=== PATIENT | female | born 1990 | race Two or more races ===

== ENCOUNTER 2024-07-29 00:02 | Emergency (ER) | payer OTHER ==
[~2024-07-29] VITALS: Ht 149.9 cm; Wt 57.8 kg
--- NOTE | 2024-07-29 00:48 | ED.PDOC ---
COMMERCIAL MANAGER HPI Comments 34-year-old female who came to ER for pelvic pain. Patient is a , about 19 weeks . States for the past 2 days she has been having lower abdominal cramping pain, right lower quadrant to suprapubic area. Does have history of uterine fibroids. Denies any nausea or vomiting or any urinary symptoms. Denies any vaginal bleeding or discharge Chief Complaint: Pelvic Pain Time Seen by MD: 00:47 Reviewed Notes: Nurses Notes Allergies: Coded Allergies: No Known Drug Allergy (Verified Allergy, Unknown, 07/29/24) Information Source: Patient Mode of Arrival: Ambulatory Timing: Days Prehospital treatment: None Severity: Moderate Vaginal Discharge: None Vaginal Lesions: None Sexual Activity: History of: Current Associated Signs and Symptoms: Abdominal Pain Past Medical History PAST MEDICAL HISTORY: Denies Past Medical History (Other): Patient states she is currently 19 weeks . Surgical History: Denies all surgeries MANUFACTURING MAINTENANCE MECHANIC History: Uterine Fibroids Family History Family History: Reviewed,noncontributory to illness Social History Smoker: Non-Smoker Alcohol: Denies ETOH Use Drugs: Denies Drug Use Lives In: Home Constitutional: denies: chills, diaphoresis, fatigue, fever, malaise, sweats, weakness, others EENTM: denies: blurred vision, double vision, ear bleeding, ear discharge, ear drainage, ear pain, ear ringing, eye pain, eye redness, hearing loss, mouth pain, mouth swelling, nasal discharge, nose bleeding, nose congestion, nose pain, photophobia, tearing, throat pain, throat swelling, voice changes, others Respiratory: denies: cough, hemoptysis, orthopnea, SOB at rest, shortness of breath, SOB with excertion, stridor, wheezing, others Cardiovascular: denies: chest pain, dizzy spells, diaphoresis, Dyspnea on exertion, edema, irregular heart beat, left arm pain, lightheadedness, palpitations, PND, syncope, others Gastrointestinal: reports: abdominal pain; denies: abdomen distended, blood streaked bowels, constipated, diarrhea, dysphagia, difficulty swallowing, hematemesis, melena, nausea, poor appetite, poor fluid intake, rectal bleeding, rectal pain, vomiting, others Genitourinary: denies: abnormal vagina bleeding, burning, dyspareunia, dysuria, flank pain, frequency, hematuria, incontinence, pain, , vagina discharge, urgency, others Neurological: denies: dizziness, fainting, headache, left sided numbness, left sided weakness, numbness, paresthesia, pre-existing deficit, right sided numbness, right sided weakness, seizure, speech problems, tingling, tremors, weakness, others Musculoskeletal: denies: back pain, gout, joint pain, joint swelling, muscle pain, muscle stiffness, neck pain, others Integumetry: denies: bruises, change in color, change in hair/nails, dryness, laceration, lesions, lumps, rash, wounds, others Allergic/Immunocompromised: denies: Difficulty Healing, Frequent Infections, Hives, Itching, others Hematologic/Lymphatic: denies: anemia, blood clots, easy bleeding, easy b ruising, swollen glands, others Endocrine: denies: excessive hunger, excessive sweating, excessive thirst, excessive urination, flushing, intolerance to cold, intolerance to heat, unexplained weight gain, unexplained weight loss, others Psychiatric: denies: anxiety, bipolar disorder, depression, hopeless, panic disorder, schizophrenia, sleepless, suicidal, others Physical Exam General Appearance: Moderate Distress (Multiple distress due to bilateral abdominal/pelvic pain.), Normal HEENT: Normal ENT Inspection, Pharynx Normal, TMs Normal Neck: Full Range of Motion, Non-Tender, Normal, Normal Inspection Respiratory: Chest Non-Tender, Lungs Clear, No Accessory Muscle Use, No Respiratory Distress, Normal Breath Sounds Cardiovascular: No Edema, No JVD, No Murmur, No Gallop, Normal Peripheral Pulses, Regular Rate/Rhythm Breast Exam: Deferred Gastrointestinal: No Pulsatile Mass, Normal Bowel Sounds, Soft, Other (Diffuse bilateral lower abdominal/pelvic tenderness to palpation. appreciated. No signs of trauma.) Genitalia: Deferred Pelvic: Deferred Rectal: Deferred Extremities: No calf tenderness, Normal capillary refill, Normal inspection, Normal range of motion, Non-tender, No pedal edema Musculoskeletal : Apperance: Normal Neurologic: Alert, No Motor Deficits, Normal Affect, Normal Mood, No Sensory Deficits Cerebellar Function: Normal Reflexes: Normal Skin: Dry, Normal Color, Warm Lymphatic: No Adenopathy Was a procedure done? Was a procedure done?: No Differential Diagnosis (MANUFACTURING MAINTENANCE MECHANIC) Vaginal Bleeding: - Threatened, Myomatous Uterus, UTI, Vaginitis, Other (Pain of ) X-Ray, Labs, Meds, VS Vital Signs Date Time Temp Pulse Resp B/P (MAP) Pulse Ox O2 Delivery O2 Flow Rate FiO2 07/29/24 00:02 99.0 98 18 106/64 (78) 99 Lab Test 07/29/24 00:12 Range/Units Urine Color Light-yellow Yellow Urine Clarity Clear Clear Urine pH 6.0 5.0-9.0 Urine Specific [place] 1.015 1.001-1.035 Urine Protein Negative Negative Urine Ketones 2+ H Negative Urine Blood Trace H Negative /uL Urine Nitrite Negative Negative Urine Bilirubin Negative Negative Urine Urobilinogen Normal Negative mg/dL Urine Leukocyte Esterase Negative Negative /uL Urine RBC 1 0 - 4 /hpf Urine WBC 3 0 - 5 /hpf Urine Squamous Epithelial Cells Few <5 /hpf Urine Bacteria None seen None Seen /hpf Urine Glucose Normal Normal mg/dL X-Ray, Labs, Meds, VS Comment All studies performed the ED today were evaluated by me personally. Laboratories were unremarkable for any acute systemic process. OB ultrasound confirmed a viable 19 week . Uterine fibroid was noted. Patient appears to be suffering from pain or as well as uterine fibroid concerns. Time of 1ST Reevaluation: 02:13 Reevaluation 1ST: Unchanged Consultation: PCP, check totaler Patient Education/Counseling: Diagnosis, Treatment Family Education/Counseling: Diagnosis, Treatment, No Family Present Departure 1 Departure Time of Disposition: 02:13 Impression: Primary Impression: Pain of round ligament during Additional Impression: Uterine fibroid Disposition: HOME / SELF CARE / HOMELESS Condition: Stable Additional Instructions: Advised continued use of Tylenol to aid in pain relief. Patient should follow up with tax examining technician for conversation is related to today's visit. e-Prescriptions Ondansetron Odt 4MG Tab (ZOFRAN PO) 4 Mg Tb 4 MG PO Q6HP PRN, #15 TAB ODT TAB-DISSOLVE IN MOUTH, THEN SWALLOW Prov: EAMON LEAL PAC 07/29/24 Acetaminophen (Acetaminophen) 500 Mg Tab 500 MG PO Q4HP PRN, #30 TAB Prov: EAMON LEAL PAC 07/29/24 Discharged With: Self, Spouse Critical Care Note Critical Care Time?: No Stability Stability form required: No Heart Score Heart Score: Heart Score Response (Comments) Value History N/A 0 EKG N/A 0 Age N/A 0 Risk Factors N/A 0 Troponin N/A 0 Total 0 I personally scribed for EAMON LEAL PAC ([email or web address]) on 07/29/24 at 00:48. Electronically submitted by Corey Krueger ([facility]). EAMON LEAL PAC Jul 29, 2024 00:48
[2024-07-29 00:59] LABS: Urine Bacteria None Seen /hpf (None Seen)
[2024-07-29 01:17] LABS: Urine Blood TRACE /uL (Negative); Urine Clarity Clear (Clear); Urine Color Light-Yellow (Yellow); Urine Protein, UAD Negative (Negative); Urine Specific Gravity 1.015 (1.001-1.035); Urine Urobilinogen Normal (Negative); Urine WBC 3 /hpf (0 - 5)
--- NOTE | 2024-07-29 02:04 | DVH ---
OB ULTRASOUND, LIMITED CLINICAL INDICATION: Bilateral pelvic pain TECHNIQUE: Multiple grayscale ultrasound and M-mode images were obtained of the pelvis for evaluation of intrauterine . COMPARISON: None FINDINGS: A single living fetus is seen in cephalic presentation. Biparietal diameter: 4.55 cm (19 weeks, 5 days) Head Circumference: 16.55 cm (19 weeks, 2 days) Abdomen Circumference: 13.10 cm (18 weeks, 4 days) Femur Length: 2.92 cm (19 weeks, 0 days) Estimated weight: 262 grams (+/- 39 grams). 9 oz Placenta: Anterior. Amniotic fluid: Visibly normal. Cervix is 3.2 cm and closed heart rate: 153 beats/min. A complete anatomic survey was not performed on this exam. There is a fibroid in the uterine fundus measuring up to 6.6 cm. IMPRESSION: 1. Single intrauterine with an estimated gestational age of 19 weeks, 1 days, correspondi ng to an estimated date of delivery of 12/22/2024. 2. Uterine fundus fibroid.
[2024-07-29] MEDS ORDERED: ZOFR4T PO (02:15)
[2024-07-29] MEDS ORDERED: ACET500T58 PO (02:15)
[2024-07-29 02:40] VITALS: BP 110/75; PULSE 94; RESP 16; TEMP 98.4; O2SAT 100
== END 2024-07-29 03:03 | disposition home or self-care (01) ==
LOC: ER 00:02
DX: O34.12 Maternal care for benign tumor of corpus uteri, second trimester (principal); O26.892 Other specified pregnancy related conditions, second trimester; D25.9 Leiomyoma of uterus, unspecified; R10.2 Pelvic and perineal pain; Z3A.19 19 weeks gestation of pregnancy; Z86.018 Personal history of other benign neoplasm
CPT/HCPCS: 76805; 81001